=== PATIENT | female | born 1940 | race Caucasian/White ===

== ENCOUNTER 2017-07-07 10:12 | Day surgery (SDC) | payer BC ==
--- NOTE | 2017-06-29 04:14 | HP ---
PREOPERATIVE HISTORY AND PHYSICAL: DATE OF SURGERY/ADMISSION: 07/07/[address] [facility] ATTENDING SURGEON: Aure Contreras MD * (DICTATED BY KALPANA GLEZ) PROCEDURE: Excision cyst, left middle finger. DATE OF OFFICE VISIT/ENCOUNTER: 06/25/17 CHIEF COMPLAINT: Cyst, left middle finger. HISTORY OF PRESENT ILLNESS: This is a 77-year-old female who has a mass on the dorsal aspect of her left middle finger in the area of the PIP joint that has been present for about 6 months. She does not recall any specific injury. She recently hit the mass on something and it broke open and drained. She has been seen before by Dr. Cordon, a business analyst ecommerce in [place] who referred her to Dr. Contreras for further evaluation and treatment consideration. The patient denies any associated numbness or tingling. X-rays show that she has some moderate degenerative changes at the PIP joint of the finger. Dr. Contreras is recommending surgical intervention at this time in the form of excision of the cyst from the left middle finger and the patient has consented to proceed. PAST MEDICAL HISTORY: 1. Hypertension. 2. Hypercholesterolemia. 3. Hypothyroidism. PAST SURGICAL HISTORY: Tonsillectomy. CURRENT MEDICATIONS: 1. Aspirin low dose 81 mg daily. 2. Atenolol 25 mg daily. 3. Atorvastatin calcium 10 mg daily. 4. Calcium 600 plus vitamin D daily. 5. Glucosamine chondroitin 1500 complex maximum strength daily. 6. Hydrochlorothiazide 12.5 mg daily. 7. Multivitamin daily. 8. Synthroid 112 mcg daily. 9. Vitamin D3 high potency 1000 units 2 daily. ALLERGIES: No known drug allergies. FAMILY MEDICAL HISTORY: Significant for breast cancer and liver cancer. 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 She denies tobacco use, recreational drug use, and alcohol use. REVIEW OF SYSTEMS: General: Negative for fevers, chills, or night sweats. No known anesthesia problems. HEENT: Negative for headache, lightheadedness, or syncopal episodes. Integumentary: Positive for cyst on left middle finger. Negative for abrasions or open wounds. Cardiothoracic: Positive for hypertension. Negative for chest pain, palpitations or edema. Pulmonary: Negative for shortness of breath with exertion, chronic cough or COPD. GI: Negative for nausea, vomiting, diarrhea, constipation or GERD. : Negative for nocturia, urinary frequency, urgency, history of UTIs, or kidney problems. Musculoskeletal: Positive for current complaint. Negative for chronic or intermittent back pain or history of fractures. Neurologic: Negative for paresthesias, numbness, history of seizures, or stroke. Endocrine: Positive for low thyroid. Negative for diabetes. Hematologic: Negative for easy bruising, anemia, excessive bleeding, or history of DVT. Infectious Disease: Negative for history of MRSA, hepatitis C, or HIV. PHYSICAL EXAMINATION GENERAL: Well-developed, well-nourished 77-year-old female in no acute distress. VITAL SIGNS: Height is 5 feet 3 inches, weight 135 pounds. Pulse rate 64, blood pressure 130/70. HEENT: Normocephalic, atraumatic. Pupils are equal, round, and reactive to light and accommodation. Extraocular movements are intact. NECK: Supple. No palpable lymph nodes. Throat is clear. PULMONARY: Lungs are clear to auscultation bilaterally. No wheezes, rales, or rhonchi. CARDIOVASCULAR: Regular rate and rhythm. S1, S2. No murmurs, rubs, or gallops. No edema. ABDOMEN: Positive bowel sounds, soft, nontender. NEUROLOGIC: Alert and oriented x3. Cranial nerves II through XII are intact. Sensation is intact to light touch. MUSCULOSKELETAL: On exam of her left hand, she has the cystic mass on the dorsal aspect of her middle finger DIP joint. It is tender to palpation. She has a deformity of her fingernail distal to the lesion. She has full range of motion of the DIP joint and the mass appears to be a mucous cyst. STUDIES: X-ray, AP, lateral and oblique of the left middle finger shows some mild degenerative changes of the DIP joint. IMPRESSION: Mucous cyst, left middle finger. PLAN: The patient is scheduled to undergo an excision of cyst, left middle finger with Dr. Contreras on 07/07/17. She will return to the office in 10 to 14 days postop for followup and suture removal. She will plan on using over-the- counter Tylenol for postoperative pain management. KALPANA GLEZ [id number]/[facility] #: [id number] [place]
[~2017-07-07 10:12] MED LIST: Buffered Lidocaine 0.9% SYRIN* 5 ML/SYR SYRINGE INTRADERM ONE; Famotidine IV* 10 MG/ML 2 ML (20 mg) IV ONE; Lidocaine 1% INJ* 10 MG/ML 30 ML SDV ONE
[2017-07-07] MEDS ORDERED: oxyCODONE TAB* 5 MG TAB PO PRN (10:44)
[2017-07-07] MEDS ORDERED: Acetaminophen TAB* 325 MG PO PRN (10:44)
[2017-07-07] MEDS ORDERED: Famotidine IV* 10 MG/ML 2 ML (20 mg) ONE (10:55)
[2017-07-07] MEDS ORDERED: Midazolam* 1 MG/ML 5 ML VIAL (5 MG) ONE (11:38)
[2017-07-07] MEDS ORDERED: fentaNYL* 50 MCG/ML 2 ML VIAL (100 MCG VIAL) ONE (11:38)
[2017-07-07] MEDS ORDERED: Ondansetron INJ* 2 MG/ML VIAL ONE (11:53)
[2017-07-07] MEDS ORDERED: Propofol* 10 MG/ML 20 ML BTL IV PUSH ONE (11:53)
[2017-07-07] MEDS ORDERED: Ketorolac INJ* 30 MG/ML 1 ML VIAL ONE (11:53)
[2017-07-07] MEDS ORDERED: Lidocaine 2% PF * 5 ML VIAL ONE (11:53)
[2017-07-07 12:51] VITALS: BP 140/53
--- NOTE | 2017-07-08 01:37 | OP ---
DATE OF OPERATION: 07/07/17 [facility] DATE OF : 44 SURGEON: Dr. Contreras. BONDING MACHINE OPERATOR: KALPANA Og. ANESTHESIOLOGIST: Cori Callahan MD ANESTHESIA: Local MAC. PRE-OP DIAGNOSIS: Left long finger mass. POST-OP DIAGNOSIS: Left long finger mass. OPERATIVE PROCEDURE: Removal of left long finger mass. ESTIMATED BLOOD LOSS: Zero. TOURNIQUET TIME: Approximately 10 minutes. INDICATIONS FOR PROCEDURE: Liset is a 77-year-old woman who has a painful mass on the dorsal aspect of her left long finger DIP joint. She presents for removal. DESCRIPTION OF PROCEDURE: The patient was brought to the operating room, was given a sedation anesthetic and a digital block with 10 cc of 1% plain lidocaine. Skin of her left hand and forearm was prepped and draped in the usual sterile fashion. The middle finger was exsanguinated with a Tourni-Cot. An H-shaped incision was made on the dorsal aspect of the DIP joint of the left middle finger. Skin flaps were dissected off of the ganglion cyst. The cyst was removed in its entirety from over top of the nail bed in the extensor tendon , either side of the extensor tendon was incised longitudinally and the underlying osteophytes were removed with a rongeur. The wound was irrigated and the skin edges reapproximated with 4-0 nylon suture. The wound was dressed with Xeroform, 4x4, Webril, and Coban. The patient tolerated the procedure well and was brought to the recovery room in good condition. [id number]/[facility] #: [id number] MTDD
== END 2017-07-07 13:17 | disposition home or self-care (01) ==
LOC: OREAST 10:12
PROVIDERS: ATTEND Orthopaedic Surgery
DX: M67.442 Ganglion, left hand (principal); I10 Essential (primary) hypertension; E78.00 Pure hypercholesterolemia, unspecified; E03.9 Hypothyroidism, unspecified
CPT/HCPCS: 88304; J1885; J2001; J2250; J2405; J2704; J3010